=== PATIENT | male | born 1990 | race Caucasian/White ===

== ENCOUNTER 2020-06-18 06:47 | Emergency (ER) | payer BC, SELFPAY ==
[2020-06-18 06:53] VITALS: BP 123/62; PULSE 90; RESP 16; TEMP 36.8; O2SAT 100
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
--- NOTE | 2020-06-18 07:10 | DI.RAD_ITS ---
EXAM: XR WRIST LT COMP NAVICULAR CLINICAL HISTORY: RADHA, pain at scaphoid TECHNIQUE: COMPARISON: No exams were available for comparison FINDINGS: Four views were obtained. There is a linear lucency of the navicular waist which appears likely to r epresent a nondisplaced fracture. No additional fracture seen IMPRESSION:
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
[2020-06-18] MEDS: Acetaminophen 500 MG TAB 1000 MG PO (07:59)
[2020-06-18] MEDS: Ibuprofen 800 MG TAB PO (07:59)
== END 2020-06-18 08:00 | disposition home or self-care (01) ==
PROVIDERS: Emergency Provider Student in an Organized Health Care Education/Training Program; PCP Family Medicine
DX: S62.025A Nondisplaced fracture of middle third of navicular [scaphoid] bone of left wrist, initial encounter for closed fracture (principal); W19.XXXA Unspecified fall, initial encounter
CPT/HCPCS: 25622; 73110; L3807